=== PATIENT | female | born 1965 | race Caucasian/White ===

== ENCOUNTER 2022-08-06 18:12 | Emergency (ER) | payer BC ==
[~2022-08-06] VITALS: Ht 172.7 cm; Wt 80.7 kg
[~2022-08-06 18:12] MED LIST: CALCIUM 500 MG1 EACH PO
[2022-08-06] MEDS ORDERED: ASPIRIN325 MG PO (19:19)
== END 2022-08-06 21:05 | disposition home or self-care (01) ==
LOC: ED 18:12
DX: R10.9 Unspecified abdominal pain (principal); Z79.899 Other long term (current) drug therapy; Z79.82 Long term (current) use of aspirin
CPT/HCPCS: 36415; 74176; 80053; 81001; 85025; 99284-25

== ENCOUNTER 2023-06-22 08:25 | Day surgery (SDC) | payer BC ==
[2023-06-13 08:02] VITALS: BP 98/66
[~2023-06-22] VITALS: Ht 172.7 cm; Wt 74.5 kg
[~2023-06-22 08:25] MED LIST changes: +ASPIRIN325 MG PO; +CHLORTHALIDONE25 MG PO; +FERROUS SULFAT325 M2 PO; +LOSARTAN POTASS50 MG PO; +POTASSIUM CHLO20 ME2 PO; +ROSUVASTATIN CA40 MG PO; +VITAMIN D325 MCG PO
[2023-06-22 08:37] VITALS: BP 125/90
[2023-06-22 11:22] VITALS: BP 126/70
--- NOTE | 2023-06-22 11:46 | NUR ---
LE 1120: PT IS BACK TO DS FROM [place]. VS TAKEN. SHE IS EDUCATED THAT SHE CAN GET DRESSED AND TO OPEN HER CURTAIN WHEN READY. LE 1135: DR. SCHNEIDER IS IN THE ROOM TO TALK WITH PT AND . LE 1145: PT AND ARE GIVEN VERBAL AND WRITTEN DC INSTRUTIONS. THEY VERBALIED WITH UNDERSTANDING. THEY DO NOT HAVE QUESTIONS AT THIS TIME. PT IS DC'D HOME AMBULATORY WITH ACCOMPANYING HER.
--- NOTE | 2023-06-22 12:02 | OR ---
[facility] [address] [place], [place] [address] Signed DATE OF OPERATION: 06/22/2023 SURGEON: Nik Schneider MD PREOPERATIVE DIAGNOSIS: A 5 x 4 cm left upper quadrant subcutaneous mass. POSTOPERATIVE DIAGNOSIS: A 4 x 3 cm left upper quadrant subcutaneous mass (lipoma). PROCEDURE: Excision of subcutaneous mass. ESTIMATED BLOOD LOSS: None. INDICATIONS: Jojo is a 58-year-old female, who was asked to see me for a subcutaneous mass, where the inner posterior aspect of her left arm joins the axilla. She has an area about 5 x 4 cm measured in the office. She thinks this started as three bumps and came together . It is now an oval-shaped mass. It does not appear attached to the overlying skin and underlying muscle. 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 In the office, I explained to Jojo, this is most likely a lipoma. These are benign fatty tumors. Sometimes they do recur, but it is probably rodriguez to go and remove it. It is a little bit difficult, and I thought it was just a little bit large to remove in the office, especially without good lighting and help assisting with retraction of the skin flaps and so forth. She understands we will use a radial incision over that area. There is risk including, but not limited to bleeding, infection, scarring, change in contour of the skin as well as recurrent lipomas in the same or other locations. She understands this will be a day surgery, she will go home afterwards. She has expressed understanding and wished to proceed. DESCRIPTION OF PROCEDURE: I met with Jojo in our preop area. With our nurse present, we could all easily identify the subcutaneous oval-shaped mass. We marked that appropriately. After this, she was taken into the operating room and placed in the supine semi-recumbent position. Her left shoulder, axilla, and arm were prepped and draped in the usual sterile fashion. We injected local anesthetic and around the lesion. We made a radial incision over the lesion, and we carefully went around the lesion with our cautery. Once we had it completely out, it was more on the long lines of 4 x 3 cm, it was clinically consistent Electronically Signed By: NIK SCHNEIDER MD 06/22/23 1202 PATIENT NAME: JOJO NAPOLES OPERATIVE REPORT DATE OF : 63 REPORT #: [id number] PHYSICIAN: NIK SCHNEIDER MD PCP: BOBBY JOSEPH MD REPORT IS CONFIDENTIAL AND NOT TO BE RELEASED WITHOUT AUTHORIZATION [facility] [address] [place], [place] [address] Signed with a lipoma. We then brought some of the subcutaneous adipose tissue together with interrupted 3-0 Monocryl sutures. Her skin is very thin in this area, so we used 5-0 Monocryl suture to bring the skin and dermis together very carefully with interrupted subcutaneous suture. We used Mastisol 0.5 inch Steri-Strips to help over top of the incision, then dry gauze and tape. After this, Jojo was taken over to her hospital bed and moved into the recovery room in stable condition. She tolerated the procedure quite well. MD YOAV Ramirez/PEPEL /[id number] cc: Patient Chart MD Bobby Ramirez MD Copies: NIK SCHNEIDER MD, MICHAEL MD ~ Electronically Signed By: NIK SCHNEIDER MD 06/22/23 1202 PATIENT NAME: JOJO NAPOLES OPERATIVE REPORT DATE OF : 63 REPORT #: [id number] PHYSICIAN: NIK SCHNEIDER MD PCP: BOBBY JOSEPH MD REPORT IS CONFIDENTIAL AND NOT TO BE RELEASED WITHOUT AUTHORIZATION
--- NOTE | 2023-06-24 13:46 | PATH ---
[facility] [address] [place] [address] Signed SPECIMEN(S): A LEFT UPPER ARM SPECIMEN SOURCE: A. LEFT UPPER ARM CLINICAL HISTORY: Lipoma FINAL PATHOLOGIC DIAGNOSIS: Left upper arm: - [place] lobulated adipose tissue consistent with lipoma. JVR:llc MICROSCOPIC EXAMINATION: Histologic sections of all submitted blocks are examined by light microscopy. These findings, together with the gross examination, support the pathologic diagnosis. GROSS DESCRIPTION: The specimen, labeled and designated "Sitz, left upper arm subcutaneous mass," is received in formalin and consists of 3 pieces of yellow-cui, soft, lobulated tissue fragments that aggregate measure 4.5 x 3.5 x 1.2 cm. Specimen is inked. Sectioning through the tissue reveal regular adipose tissue. No abnormalities are grossly identified. [facility] [employer] Department sections are submitted in (A1-A2). JS (under the direct supervision of a pathologist) The Gross Description was prepared using a voice recognition system. The report was reviewed for accuracy; however, sound-alike word errors, addition and/or deletions may occur. If there is any question about this report, please contact Client Services. PERFORMING LABORATORY: Technical component was performed by [facility], [address] [place] [id number] (CLIA# [id number]). Professional interpretation was performed by [facility], [address] [place] [id number] (CLIA#: [id number]). Diagnostician: Ramón Phillips MD Pathologist Electronically Signed 06/24/2023 PATIENT NAME: ANDI NAPOLES PATHOLOGY DATE OF : 63 REPORT #: [id number] PHYSICIAN: CHERELLE PATHOLOGY PCP: ADRIÁN JOSEPH MD REPORT IS CONFIDENTIAL AND NOT TO BE RELEASED WITHOUT AUTHORIZATION [address] [place], [place] [address] Signed Copies: ~ PATIENT NAME: ANDI NAPOLES PATHOLOGY DATE OF : 63 REPORT #: [id number] PHYSICIAN: CHERELLE PATHOLOGY PCP: ADRIÁN JOSEPH MD REPORT IS CONFIDENTIAL AND NOT TO BE RELEASED WITHOUT AUTHORIZATION
== END 2023-06-22 11:40 | disposition home or self-care (01) ==
LOC: DS 08:25
PROVIDERS: ATTEND Colon & Rectal Surgery
PROC: 0JBF0ZZ Excision of Left Upper Arm Subcutaneous Tissue and Fascia, Open Approach (ICD-10-PCS; principal; 2023-06-22 09:40)
DX: D17.22 Benign lipomatous neoplasm of skin and subcutaneous tissue of left arm (principal)
CPT/HCPCS: J1644

== ENCOUNTER 2023-11-09 10:20 | Day surgery (SDC) | payer BC ==
[2023-11-07 10:31] VITALS: BP 118/84
[~2023-11-09] VITALS: Ht 172.7 cm; Wt 74.5 kg
[~2023-11-09 10:20] MED LIST changes: +IBLOOD GLUCOSE TEST STRIP 1 EA TEST VI PRN; +LACTATED RINGER'S 1,000 ML IV SCH; +LASIX20 MG PO; +LIDOCAINE HCL 1% 5 ML SDV INJ ONE
[2023-11-09 10:49] VITALS: BP 124/71
[2023-11-09 11:10] LABS: BASOPHILS 0.5 % (0-2); BASOPHILS, ABSOLUTE 0 %; EOSINOPHILS, ABSOLUTE 0.5; HEMATOCRIT 34.1 % (35.0-50.0); HEMOGLOBIN 11.4 g/dL (12.0-18.0); LYMPHOCYTES 22.7 % (24-44); LYMPHOCYTES, ABSOLUTE 1.4; MCH 28.3 (27-36); MCHC 33.4 g/dl (30-36); MCV 84.7 fl (81-99); MONOCYTES 7.1 % (0-12); MONOCYTES, ABSOLUTE 0.4; NEUTROPHILS 61.7 % (39-80); NEUTROPHILS, ABSOLUTE 3.7; PLATELET COUNT 184 K/uL (140-440); RBC 4.02 M/ul (4.3-5.7); RDW 14.4 (10.5-15.0)
[2023-11-09] MEDS ORDERED: propofoL 200 MG/20 ML VIAL ONE (11:50)
--- NOTE | 2023-11-09 12:32 | NUR ---
11/09/23 1232 Nasreen Brandon 1225: PATIENT ARRIVES IN PACU IN PRONE. SHE IS UNRESPONSIVE TO MY VOICE AND LIGHT TOUCH.
[2023-11-09 12:46] VITALS: BP 112/73
--- NOTE | 2023-11-09 22:07 | EKG ---
[facility] [address] [facility] [place] [address] Signed Sinus bradycardia with 1st degree AV block Otherwise normal ECG No previous ECGs available Confirmed by Gómez Lockhart MD () on 11/09/2023 10:07:23 PM Electronically Signed By: GÓMEZ LOCKHART MD 11/09/232206 PATIENT NAME: ANDI NAPOLES Electrocardiogram DATE OF : 63 PHYSICIAN: GÓMEZ LOCKHART MD REPORT #: [id number] REPORT IS CONFIDENTIAL AND NOT TO BE RELEASED WITHOUT AUTHORIZATION
== END 2023-11-09 12:53 | disposition home or self-care (01) ==
LOC: OPS 10:20 → DS 10:20 → OPS 12:00 → DS 12:00 → OPS 12:53
PROVIDERS: ATTEND Specialist
PROC: 079T3ZX Drainage of Bone Marrow, Percutaneous Approach, Diagnostic (ICD-10-PCS; 2023-11-09)
PROC: 07DR3ZX Extraction of Iliac Bone Marrow, Percutaneous Approach, Diagnostic (ICD-10-PCS; principal; 2023-11-09 12:00)
DX: D72.10 Eosinophilia, unspecified (principal); I10 Essential (primary) hypertension; Z79.899 Other long term (current) drug therapy; Z88.8 Allergy status to other drugs, medicaments and biological substances
CPT/HCPCS: 01112; 36415; 85025; 93005; 93010; J2704